=== PATIENT | female | born 1945 | race Caucasian/White ===

== ENCOUNTER → 2022-03-05 | Outpatient (CLI) | payer MEDICARE ==
[~2022-03-05] MED LIST: ASPI81CH; ASPI81CH PO; ASPI81EC; CALCA500CH PO; CHOLESTEROL MED PO; CLOP75; HYDR1TAB94 PO; LEVFLO500 PO; LISI20 PO; LOPE2C PO; MEDS FOR HTN; MELO7.5; METO50 PO; SERT50 PO; SIMV40 PO; VITORIN; VYTORIN
== END | disposition home or self-care (01) ==
LOC: LAB 16:01 → LAB SHORT 16:01
DX: N39.0 Urinary tract infection, site not specified (principal)
CPT/HCPCS: 87077; 87086; 87186

== ENCOUNTER → 2022-05-24 | Outpatient (CLI) | payer MEDICARE ==
[2022-05-24 11:13] LABS: Source, Urine Clean Catch
[2022-05-24 14:11] LABS: Appearance, Urine Clear (Clear); Bilirubin, Urine Neg (Neg); Blood, Urine Neg (Neg); Color, Urine Yellow (P-Yellow); Glucose Qualitative, Urine Neg (Neg); Ketones, Urine Neg (Neg); Leukocyte Esterase, Urine 1+ (Neg); Nitrite, Urine Neg (Neg); Protein, Urine Neg (Neg); Urobilinogen, Urine NORM (Normal)
[2022-05-24 14:25] LABS: Bacteria Few /hpf; Red Blood Cells, Urine 0-2 /hpf (0-2); Squamous Epithelial Cells Few /hpf (Few)
== END | disposition home or self-care (01) ==
LOC: LAB 08:30 → LAB SHORT 08:30
PROVIDERS: Nurse Practitioner Family
DX: I10 Essential (primary) hypertension (principal)
CPT/HCPCS: 81001; 87086

== ENCOUNTER 2024-10-29 07:01 | Inpatient (IN) | payer MEDICARE ==
[~2024-10-29] VITALS: Ht 160 cm; Wt 68.0 kg
[2024-10-29] MEDS ORDERED: Ipratropium/Albuterol SulF 2.5-0.5MG/3 ML Amp INH ONE (07:25)
[2024-10-29] MEDS ORDERED: MethylPREDNISolone Sod Succ 125 MG Vial IV ONE ×2 (07:25→10:20)
[2024-10-29] MEDS ORDERED: Acetaminophen 500 MG Tab PO ONE ×2 (07:55→10:20)
[2024-10-29] MEDS ORDERED: METOPROLOL TART5010 PO (08:02)
[2024-10-29] MEDS ORDERED: ZOLOFT10013 PO (08:02)
[2024-10-29] MEDS ORDERED: LISI20 PO (08:02)
[2024-10-29] MEDS ORDERED: BREYNA 80-4.510.3 GM IH (08:02)
[2024-10-29] MEDS ORDERED: Simvastatin80 MG PO (08:03)
[2024-10-29 08:14] LABS: BASOPHILS ABSOLUTE AUTO 0.08 K/mm3 (0.00-0.23); BASOPHILS PERCENT AUTO 0 % (0-2); EOSINOPHILS ABSOLUTE AUTO 0.06 K/mm3 (0.00-0.68); EOSINOPHILS PERCENT AUTO 0 % (0-6); Hematocrit 39.1 % (33.0-51.0); Hemoglobin 13.2 g/dL (11.5-16.0); IMMATURE GRAN ABSOLUTE AUTO 0.36 K/mm3 (0.00-0.10); IMMATURE GRAN PERCENT AUTO 2 % (0-1); LYMPHOCYTES ABSOLUTE AUTO 0.52 K/mm3 (0.84-5.20); LYMPHOCYTES PERCENT AUTO 2 % (21-46); MONOCYTES ABSOLUTE AUTO 1.53 K/mm3 (0.16-1.47); MONOCYTES PERCENT AUTO 7 % (4-13); Mean Corpuscular HGB Conc 33.8 g/dL (31.5-36.5); Mean Corpuscular Volume 98 fL (80-100); Mean Platelet Volume 8.9 fL (9.1-12.4); NEUTROPHILS ABSOLUTE AUTO 18.75 K/mm3 (1.96-9.15); NEUTROPHILS PERCENT AUTO 88 % (41-73); Platelet Count 241 K/mm3 (150-400); RDW Standard Deviation 50.7 fL (35.1-46.3)
[2024-10-29] MEDS ORDERED: Doxycycline Hyclate 100 MG in Dextrose 5% 250 ML IV ONE (08:35)
[2024-10-29] MEDS ORDERED: CefTRIAXone Sodium 1,000 MG in NS 100 ML IV ONE (08:35)
[2024-10-29 08:36] LABS: Bun/Creatinine Ratio 16.2 (12.0-20.0); Calcium, Blood 8.5 mg/dL (8.5-10.1); Creatinine, Blood 0.8 mg/dL (0.40-1.00); Potassium, Blood 3.9 mmol/L (3.5-5.5)
[2024-10-29] MEDS ORDERED: FLU VACC TS2024-25(6MOS UP)/PF 45 MCG/0.5 ML SYRINGE IM SCH (09:50)
[2024-10-29] MEDS ORDERED: DiphenhydrAMINE HCl 50 MG/ML 1ML Vial IV ONE (09:50)
[2024-10-29 10:01] LABS: Influenza A, PCR NEGATIVE (NEGATIVE); Influenza B, PCR NEGATIVE (NEGATIVE); Resp Syncytial Virus, PCR NEGATIVE (NEGATIVE); SARS-Cov-2 (COVID-19) PCR, MMC NEGATIVE (NEGATIVE)
[2024-10-29] MEDS ORDERED: HYDROcodone 5-APAP 325 TAB PO PRN (14:15)
[2024-10-29] MEDS ORDERED: Mometasone/Formoterol MDI 100/5 mcg 13 GM INH SCH (14:20)
[2024-10-29 15:50] VITALS: BP 151/58
[2024-10-29 19:29] VITALS: BP 148/59
--- NOTE | 2024-10-29 19:44 | NUR ---
arrived from ed a/o pt vss no c/o pain family at bedside. pt admission done. pt call approprialty and makes needs known.
[2024-10-29] MEDS ORDERED: Lisinopril 20 MG Tab PO SCH (21:00)
[2024-10-29] MEDS ORDERED: Atorvastatin 40 MG Tab PO SCH (21:00)
[2024-10-29] MEDS ORDERED: Lactobacil 2-S.Thermo-Bifido 1 1 Cap PO SCH (21:00)
[2024-10-29] MEDS ORDERED: Metoprolol Tartrate 50 MG Tab PO SCH (21:00)
[2024-10-29] MEDS ORDERED: NS 250 ML IV PRN (23:00)
[2024-10-30] MEDS ORDERED: Doxycycline Hyclate 100 MG in Dextrose 5% 250 ML IV SCH
[2024-10-30] MEDS ORDERED: CefTRIAXone Sodium 1,000 MG in NS 100 ML IV SCH
[2024-10-30 03:09] VITALS: BP 152/59
[2024-10-30 06:04] LABS: Albumin, Blood 2.4 g/dL (3.4-5.0); Albumin/Globulin Ratio 0.6 (0.8-1.8); Bilirubin, Total 0.4 mg/dL (0.1-1.0); Bun/Creatinine Ratio 23.8 (12.0-20.0); Calcium, Blood 8.4 mg/dL (8.5-10.1); Creatinine, Blood 0.88 mg/dL (0.40-1.00); Globulin, Blood 3.9 g/dL (2.2-4.0); Potassium, Blood 4.1 mmol/L (3.5-5.5); Total Protein, Blood 6.3 g/dL (6.4-8.2)
--- NOTE | 2024-10-30 07:02 | NUR ---
SHIFT SUMMARY PT SITTING UPRIGHT IN BED AT START OF SHIFT. SHE HAS BEEN RELAXING PEACEFULLY. AFTER NIGHT [employer]YW[employer]ER, PT WENT TO SLEEP. APPROX [id number], PT NOTICED HER IV WAS LEAKING. UPON EXAMINATION, THIS RN NOTED IV HAD INFILTRATED. IV MEDICATION HAD BEEN FULLY ADMINISTERED. IV REMOVED FROM LAC, NEW IV INSERTED IN RFA SUCCESSFULLY. PT NOW RESTING COMFORTABLY.
[2024-10-30 07:18] VITALS: BP 135/55
[2024-10-30] MEDS ORDERED: Aspirin 81 MG Chew PO SCH (09:00)
[2024-10-30] MEDS ORDERED: Sertraline HCl 100 MG Tab PO SCH (09:00)
[2024-10-30] MEDS ORDERED: Furosemide 10 MG/ML 4ML Vial IV SCH (09:00)
[2024-10-30] MEDS ORDERED: Enoxaparin 40 MG/0.4 ML SYR SC SCH (09:00)
[2024-10-30 15:55] VITALS: BP 149/57
--- NOTE | 2024-10-30 18:45 | NUR ---
ASSUMED CARE OF PT UNEVENTFUL DAY FOR PT, PT STAYED QUIETLY IN BED AND WAS INDEPENDANT IN ROOM ALL DAY. HAD NO C/O PAIN SHOWED NO DISTRESS. PT STATED SHE WAS FINE WITHOUT THE O2 AND IS NOW ON ROOM AIR, SPOT CHECK SHOWED PT IN THE MID 90S. WILL CONT MONITORING
[2024-10-30 22:11] VITALS: BP 139/68
[2024-10-31 04:43] LABS: BASOPHILS ABSOLUTE AUTO 0.03 K/mm3 (0.00-0.23); BASOPHILS PERCENT AUTO 0 % (0-2); EOSINOPHILS ABSOLUTE AUTO 0.03 K/mm3 (0.00-0.68); EOSINOPHILS PERCENT AUTO 0 % (0-6); Hematocrit 39.2 % (33.0-51.0); IMMATURE GRAN ABSOLUTE AUTO 0.14 K/mm3 (0.00-0.10); IMMATURE GRAN PERCENT AUTO 1 % (0-1); LYMPHOCYTES ABSOLUTE AUTO 1.43 K/mm3 (0.84-5.20); LYMPHOCYTES PERCENT AUTO 10 % (21-46); MONOCYTES ABSOLUTE AUTO 1.61 K/mm3 (0.16-1.47); MONOCYTES PERCENT AUTO 11 % (4-13); Mean Corpuscular HGB 32.7 pg (26.0-34.0); Mean Corpuscular HGB Conc 33.2 g/dL (31.5-36.5); Mean Corpuscular Volume 99 fL (80-100); Mean Platelet Volume 9.2 fL (9.1-12.4); NEUTROPHILS PERCENT AUTO 78 % (41-73); Platelet Count 282 K/mm3 (150-400); RDW Standard Deviation 51.1 fL (35.1-46.3); Red Blood Cell Count 3.97 M/mm3 (3.80-5.20); White Blood Cell Count 14.64 K/mm3 (4.00-11.30)
[2024-10-31 05:02] LABS: Bun/Creatinine Ratio 28.3 (12.0-20.0); Calcium, Blood 8.2 mg/dL (8.5-10.1); Creatinine, Blood 1.06 mg/dL (0.40-1.00); Potassium, Blood 3.7 mmol/L (3.5-5.5)
--- NOTE | 2024-10-31 06:44 | NUR ---
SHIFT SUMMARY AT START OF SHIFT, PT GRANDSON VISITING WITH HIS BABY AND GIRLFRIEND. PT SEEMED HAPPY FOR THE VISIT. 1944, PT UP TO BATHROOM AND BACK IN BED. PT WOKE FOR MEDICATION ADMINISTRATION AND TO USE BATHROOM NEEDED. SHE SLEPT COMFORTABLY FOR MAJORITY OF SHIFT. CURRENTLY IN BED SLEEPING SOUNDLY. PT AWAKE AND SITTING ON BED. CALL LIGHT IN REACH.
[2024-10-31 08:03] VITALS: BP 129/56
[2024-10-31] MEDS ORDERED: VISBIOME 112.51 EACH PO (13:45)
[2024-10-31] MEDS ORDERED: Keflex250 MG PO (13:46)
[2024-10-31] MEDS ORDERED: FURO20 PO (13:58)
[2024-10-31] MEDS ORDERED: ALBU8HFA2 INH (13:59)
--- NOTE | 2024-10-31 17:25 | NUR ---
assumed care vss pt ready to go home and is awaiting MD for discharge orders. MD in with pt Home O2 eval ordered and implemented. pt did not need home O2 and was discharged
== END 2024-10-31 15:31 | disposition home or self-care (01) | DRG 871 ==
LOC: ER 07:01 → ERHOLD 09:47 → MEDS 15:48
PROVIDERS: Emergency Medicine; ADMIT Family Medicine
DX: A41.9 Sepsis, unspecified organism (principal); I50.31 Acute diastolic (congestive) heart failure; J18.9 Pneumonia, unspecified organism; J96.01 Acute respiratory failure with hypoxia; J44.0 Chronic obstructive pulmonary disease with (acute) lower respiratory infection; J44.1 Chronic obstructive pulmonary disease with (acute) exacerbation; E87.1 Hypo-osmolality and hyponatremia; E78.5 Hyperlipidemia, unspecified; F32.A Depression, unspecified; I25.10 Atherosclerotic heart disease of native coronary artery without angina pectoris; M79.7 Fibromyalgia; F17.210 Nicotine dependence, cigarettes, uncomplicated; I07.1 Rheumatic tricuspid insufficiency; K58.9 Irritable bowel syndrome, unspecified; G89.29 Other chronic pain; M54.9 Dorsalgia, unspecified; K21.9 Gastro-esophageal reflux disease without esophagitis; Z79.82 Long term (current) use of aspirin; I25.2 Old myocardial infarction; Z95.5 Presence of coronary angioplasty implant and graft; Z79.51 Long term (current) use of inhaled steroids; Z79.891 Long term (current) use of opiate analgesic
CPT/HCPCS: 0241U; 36415; 71045; 71260; 80048; 80053; 83605; 83880; 84484; 85025; 85379; 93005; 93010; 93306; 94640; 94664; 94760; 94761; 99285-25; A9270; J0696; J1200; J1650; J1940; J2919; J7050; J7060; Q9967